=== PATIENT | female | born 2000 | race Caucasian/White ===

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

== ENCOUNTER 2021-02-20 22:06 | Emergency (ER) | payer OTHER ==
[~2021-02-20] VITALS: Ht 165.1 cm; Wt 68.0 kg
[2021-02-20 22:55] VITALS: BP_SYST 138
[2021-02-21 01:05] LABS: BILIRUBIN,URINE NEGATIVE (NEGATIVE); BLOOD, URINE 3+ (NEGATIVE); CLARITY/URINE CLEAR (CLEAR); COLOR,URINE YELLOW (YELLOW); GLUCOSE,URINE NEGATIVE (NEGATIVE); KETONES,URINE NEGATIVE (NEGATIVE); LEUKOCYTE ESTERASE ,URINE NEGATIVE (NEGATIVE); NITRITE, URINE NEGATIVE (NEGATIVE); PH,URINE 7.5 (5.0-8.0); PROTEIN URINE TRACE (NEGATIVE)
[2021-02-21] MEDS ORDERED: ACETAMINOPHEN 500 MG TABLET PO ONE (01:15)
[2021-02-21] MEDS ORDERED: ONDANSETRON HCL 4 MG/2 ML VIAL IVP ONE ×2 (01:15)
[2021-02-21] MEDS ORDERED: NACL 0.9% 1,000 ML IV ONE (01:15)
[2021-02-21] MEDS: NACL 0.9% 1,000 ML IV ONE ×2 (02:15→03:54)
[2021-02-21 02:25] LABS: BASOPHILS % (AUTO) 0.3 % (0.0-2.0); EOSINOPHILS # (AUTO) 0.2 K/uL (0.0-0.4); EOSINOPHILS % (AUTO) 1.9 % (0.0-4.0); HEMATOCRIT 41.4 % (36-48); LYMPHOCYTES # (AUTO) 2.7 K/uL (1.0-5.5); LYMPHOCYTES % (AUTO) 30.2 % (20.5-51.5); MEAN CORPUSCULAR HEMOGLOBIN 30 pg (27-31); MEAN CORPUSCULAR HGB CONC 34 % (32-36); MEAN CORPUSCULAR VOLUME 90 fL (79.0-98.0); MONOCYTES # (AUTO) 0.7 K/uL (0.0-1.0); MONOCYTES % (AUTO) 7.2 % (1.7-9.3); NEUTROPHILS # (AUTO) 5.5 K/uL (1.8-7.7); NEUTROPHILS % (AUTO) 60.4 % (40.0-70.0); PLATELET COUNT (AUTO) 238 K/uL (130-430); RED CELL DISTRIBUTION WIDTH 13.2 % (9.0-15.0); WHITE BLOOD COUNT (AUTO) 9.1 K/uL (4.8-10.8)
[2021-02-21 03:11] LABS: POTASSIUM 3.5 mmol/L (3.5-5.1)
[2021-02-21 03:12] LABS: CALCIUM 9.3 mg/dL (8.4-11.0); CREATININE 0.58 mg/dL (0.55-1.30)
[2021-02-21 03:14] LABS: TOTAL BILIRUBIN 0.7 mg/dL (0.0-1.0)
[2021-02-21 03:15] LABS: ALBUMIN 4.3 g/dL (3.4-4.8)
[2021-02-21 04:55] LABS: BACTERIA,URINE FEW /HPF (None Seen)
[2021-02-21 04:57] LABS: MUCUS,URINE None Seen /LPF (None Seen)
[2021-02-21] MEDS ORDERED: ONDA-8 TL (05:29)
[2021-02-21] MEDS ORDERED: CEFU250T85 PO (05:29)
[2021-02-21] MEDS ORDERED: cefTRIAXone 1 GM in D5W 50 ML IV ONE (05:30)
[2021-02-21 05:50] VITALS: BP_SYST 138
[2021-02-21] MEDS ORDERED: cefTRIAXone 1 GM VIAL ONE (06:32)
== END 2021-02-21 05:50 | disposition home or self-care (01) ==
LOC: SED 22:06
DX: R11.2 Nausea with vomiting, unspecified (principal); R53.1 Weakness; Z79.899 Other long term (current) drug therapy
CPT/HCPCS: 36415; 76705; 80053; 81000; 81025; 83605; 85025; 87040; 87086; 96361; 96365; 96375; 99284; J0696; J2405; J7030

== ENCOUNTER 2021-03-22 17:09 | Emergency (ER) | payer OTHER ==
[~2021-03-22] VITALS: Ht 162.6 cm; Wt 59.0 kg
[~2021-03-22 17:09] MED LIST: CEFU250T85 PO; ONDA-8 TL
[2021-03-22 17:50] VITALS: BP_SYST 124
[2021-03-22] MEDS ORDERED: NACL 0.9% 1,000 ML IV ONE (19:00)
[2021-03-22] MEDS ORDERED: METOCLOPRAMIDE HCL 10 MG/2 ML VIAL IVP ONE (19:00)
[2021-03-22] MEDS ORDERED: DIPHENHYDRAMINE INJ 50 MG/ML VIAL IVP ONE ×2 (19:00→20:30)
[2021-03-22 19:37] LABS: BASOPHILS % (AUTO) 0.1 % (0.0-2.0); EOSINOPHILS % (AUTO) 0.1 % (0.0-4.0); HEMATOCRIT 45.6 % (36-48); HEMOGLOBIN 15.6 g/dL (12.0-16.0); LYMPHOCYTES # (AUTO) 0.8 K/uL (1.0-5.5); LYMPHOCYTES % (AUTO) 12.9 % (20.5-51.5); MEAN CORPUSCULAR HEMOGLOBIN 30 pg (27-31); MEAN CORPUSCULAR HGB CONC 34 % (32-36); MEAN CORPUSCULAR VOLUME 88 fL (79.0-98.0); MONOCYTES # (AUTO) 0.4 K/uL (0.0-1.0); MONOCYTES % (AUTO) 6.2 % (1.7-9.3); NEUTROPHILS # (AUTO) 4.9 K/uL (1.8-7.7); NEUTROPHILS % (AUTO) 80.7 % (40.0-70.0); PLATELET COUNT (AUTO) 222 K/uL (130-430); RED BLOOD CELL COUNT(AUTO) 5.19 MIL/uL (4.2-6.2); RED CELL DISTRIBUTION WIDTH 12.8 % (9.0-15.0); WHITE BLOOD COUNT (AUTO) 6.1 K/uL (4.8-10.8)
[2021-03-22 19:41] LABS: CREATININE 0.78 mg/dL (0.55-1.30); POTASSIUM 3.4 mmol/L (3.5-5.1)
[2021-03-22 19:47] LABS: ALBUMIN 4.3 g/dL (3.4-4.8); TOTAL BILIRUBIN 0.9 mg/dL (0.0-1.0)
[2021-03-22 20:30] LABS: BILIRUBIN,URINE 2+ (NEGATIVE); BLOOD, URINE NEGATIVE (NEGATIVE); CLARITY/URINE CLEAR (CLEAR); COLOR,URINE YELLOW (YELLOW); GLUCOSE,URINE NEGATIVE (NEGATIVE); KETONES,URINE 2+ (NEGATIVE); LEUKOCYTE ESTERASE ,URINE NEGATIVE (NEGATIVE); NITRITE, URINE NEGATIVE (NEGATIVE); PROTEIN URINE TRACE (NEGATIVE)
[2021-03-22] MEDS ORDERED: MORPHINE 2 MG/ML INJ. SYRINGE IVP ONE (20:30)
[2021-03-22] MEDS ORDERED: PROC10TA13 PO (20:31)
[2021-03-22 20:55] VITALS: BP_SYST 124
[2021-03-22 21:28] LABS: RBC,URINE 0-3 /HPF (0-3)
[2021-03-22 21:29] LABS: BACTERIA,URINE RARE /HPF (None Seen)
[2021-03-22 21:32] LABS: MUCUS,URINE None Seen /LPF (None Seen)
== END 2021-03-22 20:55 | disposition home or self-care (01) ==
LOC: SED 17:09
DX: R10.13 Epigastric pain (principal); R10.11 Right upper quadrant pain; R11.2 Nausea with vomiting, unspecified; R19.7 Diarrhea, unspecified; B34.9 Viral infection, unspecified; Z79.899 Other long term (current) drug therapy
CPT/HCPCS: 36415; 76700; 80053; 81000; 81025; 83690; 85025; 96361; 96374; 96375; 99284; J1200; J2765; J7030